=== PATIENT | male | born 1985 | race Caucasian/White ===

== ENCOUNTER 2021-03-16 08:29 | Emergency (ER) | payer SELFPAY ==
[~2021-03-16] VITALS: Ht 182.9 cm; Wt 92.2 kg
[2021-03-16] MEDS ORDERED: TETRACAINE 0.5% OPHTH SOLUTION 4ML BOTTLE. ONE (08:45)
[2021-03-16] MEDS ORDERED: FLUORESCEIN 1MG EYE STRIP. ONE (08:46)
[2021-03-16] MEDS: TETRACAINE 0.5% OPHTH SOLUTION 4ML BOTTLE. OD ONE (09:00)
[2021-03-16] MEDS: FLUORESCEIN 1MG EYE STRIP. OD ONE (09:00)
--- NOTE | 2021-03-16 09:05 | PHYS DOC ---
Past History Past Surgical History: Other Additional Past Surgical Histo: TUBES BILAT EARS CHILD; T&A Alcohol Use: Occasionally Adult General Chief Complaint Chief Complaint: EYE PROBLEMS HPI HPI Patient is a 35-year-old male presenting for eye problems. Onset was yesterday. He works in a welding factory and states that he was not wearing any eye protection when he was walking around the workplace and felt as though something flipped in his right eye. Ever since his eyes been red and watery. States that he has had blurred vision but this is chronic and unknown sure if anything is changed. States he knows he needed glasses prior to this injury and is unclear if his vision is at baseline. He does not wear contacts. Review of Systems Review of Systems Fourteen body systems of review of systems have been reviewed. See HPI for pertinent positives and negative responses, other gutierrez all other systems are negative, non-pertinent or non-contributory Current Medications Current Medications Current Medications Medications (Trade) Dose Ordered Sig/Marquis Start Time Stop Time Status Last Admin Dose Admin Fluorescein Sodium (Ful-Kyung 1mg) 1 strip STK-MED ONCE 03/16/21 08:46 03/16/21 08:46 DC Tetracaine HCl (Tetracaine) 40 drop STK-MED ONCE 03/16/21 08:45 03/16/21 08:46 DC Allergies Allergies Allergies Coded Allergies Type Severity Reaction Last Updated Verified Penicillins Allergy Unknown Hives 03/16/21 Yes Physical Exam Physical Exam Constitutional: Well developed, well nourished, no acute distress, non-toxic appearance. HENT: Normocephalic, atraumatic, bilateral external ears normal, oropharynx moist, no oral exudates, nose normal. Eyes: PERRLA, EOMI, conjunctiva normal, no discharge. Eye exam: The patient was examined with the slit lamp. Extraocular movements are intact Pupils are equally round and reactive to light Visual acuity: 20/70 left, 20/50 right, 20/50 bilaterally Eyelids/under eyelids: normal Conjunctivae and sclera: Right conjunctive a injected with clear watery discharge Corneas: normal without fluorescein uptake, and negative Rd sign. There is foreign body present at 4 o'clock position over iris that is Theodore with rust ring present Anterior chambers: normal without cell, flare, or hyphema Neck: Normal range of motion, no tenderness, supple, no stridor. Cardiovascular: Heart rate regular, sinus rhythm, no murmurs rubs or gallops Lungs & Thorax: Bilateral breath sounds clear to auscultation Abdomen: Bowel sounds normal, soft, no tenderness, no masses, no pulsatile masses. Nonsurgical abdomen, no peritoneal signs Skin: Warm, dry, no erythema, no rash. Back: No tenderness, no CVA tenderness. Extremities: No tenderness, no cyanosis, no clubbing, ROM intact, no edema. Neurologic: Alert and oriented X 3, grossly normal motor & sensory function, no focal deficits noted. Psychologic: Affect normal, judgement normal, mood normal. Current Patient Data Vital Signs Vital Signs Date Time Temp Pulse Resp B/P (MAP) Pulse Ox O2 Delivery O2 Flow Rate FiO2 03/16/21 08:30 97.9 75 18 135/93 (107) 100 Room Air EKG EKG [] Radiology/Procedures Radiology/Procedures [] Heart Score C/O Chest Pain: No Risk Factors: Risk Factors: DM, Current or recent (<one month) smoker, HTN, HLP, family history of CAD, obesity. Risk Scores: Risk Factors: DM, Current or recent (<one month) smoker, HTN, HLP, family history of CAD, obesity. Course & Med Decision Making Course & Med Decision Making ABCs unremarkable History and physical exam obtained concerning for retained right eye foreign body After comprehensive eye examination and attempts to remove with cotton swab, minute amount of foreign body was removed but there still remained embedded foreign body. No operable mechanical device or equivalent in ER to remove this I contacted on-call ophthalmology who ultimately agreed need to see patient and advised patient to immediately transport to his office in [facility] I discussed case with patient and need to immediately present to ophthalmology office. He was amenable. All questions and concerns addressed prior to hospital departure Dragon Disclaimer Dragon Disclaimer This electronic medical record was generated, in whole or in part, using a voice recognition dictation system. 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 Attempts were made in a significant portion of this foreign body was removed but there still remained significant debris. As a result, I contacted an eye expert, Dr. Avi Wetzel, who is able to see you here locally for definitive management. Y ou should proceed to his office at [address], [place] [address]. If you get lost you should call their clinic at [phone]. It was a pleasure to take care of you and I wish you the best going forward KRISTIAN MCCULLOUGH DO Mar 16, 2021 09:05
[2021-03-16 09:16] VITALS: BP 139/86
== END 2021-03-16 09:18 | disposition home or self-care (01) ==
LOC: ER 08:29
DX: S05.51XA Penetrating wound with foreign body of right eyeball, initial encounter (principal); Z88.0 Allergy status to penicillin; X58.XXXA Exposure to other specified factors, initial encounter; Y93.89 Activity, other specified; Y92.89 Other specified places as the place of occurrence of the external cause; Y99.8 Other external cause status
CPT/HCPCS: 65222; 65235; 99284